=== PATIENT | female | born 1950 | race Caucasian/White ===

== ENCOUNTER 2017-01-24 19:24 | Emergency (ER) | payer MEDICARE ==
[~2017-01-24] VITALS: Ht 149.9 cm; Wt 78.0 kg
[~2017-01-24 19:24] MED LIST: ASPI81 PO; DIOVAN/HCTZ; SIMV5TAB32 PO; TOPR50TA PO; ZOLO20CO PO; vytorin
[2017-01-24 19:34] VITALS: BP 135/100; PULSE 90; RESP 15; TEMP 98.4; O2SAT 100
--- NOTE | 2017-01-24 19:44 | PD ---
HPI Chief Complaint: Musculoskeletal Complaint Time Seen by Provider: 19:44 Travel History International Travel<30 days: No Contact w/Intl Traveler<30days: No Traveled to known affect area: No History of Present Illness HPI 66-year-old female is is the emergency Department with left-sided knee and thigh pain. Patient has a history of arthroscopic surgery in August of last year by Dr. Mackenzie. Patient states over the last 4 days she's had increasing pain to the medial aspect with what appears to be swelling and radiational pain into the left medial thigh. She denies numbness or weakness. She does status has been "cracking" over the past week. Patient has not tried taking anything for it. Patient does state that her sister was here visiting from [place] and they were doing more walking than normal. Patient is allergic to aspirin, although she does take an enteric-coated baby aspirin daily. She also states she is allergic to penicillin. PFS Past Medical History Depression: Yes High Cholesterol: Yes Coronary Artery Disease: Yes Diabetes: No Diminished Hearing: No Hypertension: Yes ?: Not Past Surgical History Appendectomy: Yes Coronary Artery Bypass Graft: Yes Tonsillectomy: Yes Social History Alcohol Use: No Tobacco Use: Yes (5-6 CIGS PER DAY) Substance Use: No Allergies-Medications (Allergen,Severity, Reaction): Coded Allergies: Aspirin (Verified Allergy, Mild, COLITIS, 01/24/17) Penicillin (Verified Allergy, Mild, COLITIS, 01/24/17) Reported Meds & Prescriptions Reported Meds & Active Scripts Active Prednisone 20 Mg Tab 20 Mg PO BID Reported Glipizide 10 Mg Tab 10 Mg PO DAILY Take 30 minutes before a meal Jardiance (Empagliflozin) 25 Mg Tab 25 Mg PO DAILY Hydrochlorothiazide 25 Mg Tab 25 Mg PO DAILY Amlodipine (Amlodipine Besylate) 5 Mg Tab 5 Mg PO DAILY Crestor (Rosuvastatin Calcium) 20 Mg Tab 20 Mg PO DAILY Diovan (Valsartan) 80 Mg Tab 80 Mg PO DAILY Zoloft (Sertraline HCl) 25 Mg Tab 25 Mg PO DAILY Metoprolol Succinate ER 24 HR (Metoprolol Succinate) 50 Mg Tab 50 Mg PO DAILY Aspirin Low Dose (Aspirin) 81 Mg Chew 81 Mg CHEW DAILY Review of Systems Except as stated in HPI: all other systems reviewed are Neg General / Constitutional: No: Fever Eyes: No: Visual changes HENT: No: Headaches Cardiovascular: No: Chest Pain or Discomfort Respiratory: No: Shortness of Breath Gastrointestinal: No: Abdominal Pain Genitourinary: No: Dysuria Musculoskeletal: Positive: Arthralgias, Limited ROM, Pain Skin: No Rash Neurologic: No: Weakness Psychiatric: No: Depression Endocrine: No: Polydipsia Hematologic/Lymphatic: No: Easy Bruising Physical Exam Narrative GENERAL: Patient appears in mild to moderate distress. SKIN: Warm and dry. Normal color. Normal turgor. HEAD: Atraumatic. Normocephalic. EYES: Pupils equal and round. No scleral icterus. No injection or drainage. ENT: No nasal bleeding or discharge. Mucous membranes pink and moist. Pharynx is clear. Airway is patent. NECK: Trachea midline. Supple nontender. CARDIOVASCULAR: Regular rate and rhythm. RESPIRATORY: No accessory muscle use. Clear to auscultation. Breath sounds equal bilaterally. MUSCULOSKELETAL: Extremities without clubbing, cyanosis. No obvious deformities. Patient appears to have mild to moderate effusion to the left knee compared to the right. She has tenderness with palpation along the medial joint line and up into the distal medial thigh. Patient has no calf tenderness. Negative Homans sign. Difficult to assess Francine's test or laxity secondary to patient's pain. NEUROLOGICAL: Awake and alert. No obvious cranial nerve deficits. Motor grossly within normal limits. Five out of 5 muscle strength in the arms and legs. Normal speech. PSYCHIATRIC: Appropriate mood and affect; insight and judgment normal. Data Data Last Documented VS Vital Signs Date Time Temp Pulse Resp B/P Pulse Ox O2 Delivery O2 Flow Rate FiO2 01/24/17 19:34 98.4 90 15 135/100 100 Orders Knee, Complete (4vws) (01/24/17 19:51) Ice/Cold Pack (01/24/17 19:51) Us Leg Venous Doppler (01/24/17 19:51) Prednisone (Deltasone) (01/24/17 21:00) Splint Or Brace Apply/Monitor (01/24/17 21:57) Immobilizer Knee 20 Inch (01/24/17 ) [facility] Medical Decision Making Medical Screen Exam Complete: Yes Emergency Medical Condition: Yes Differential Diagnosis Left knee pain. Left knee effusion. Possible DVT. Narrative Course Patient is medically stable at time of exam. X-ray of the left knee is ordered as well as ultrasound of the left leg. X-ray shows significant arthritis with small effusion per radiologist. Patient is given 60 mg prednisone by mouth as she cannot take NSAIDs or aspirin due to stomach issues. Ultrasound shows no DVT or other significant findings per radiologist. Patient will be placed in a knee immobilizer for comfort while emulating. Patient is given prednisone 20 mg twice a day 5 days. Patient also given Lortab 5/325 one to 2 tabs every 6 hours when necessary for pain #20. Patient use ice recoiling and follow with orthopedic as discussed. Diagnosis Primary Impression: Arthritis of knee, left Additional Impression: Effusion, left knee Referrals: Abraham Mackenzie MD call for appointment Patient Instructions: Arthritis (ED), General Instructions, Knee Immobilizer ( ED) Additional Instructions: Patient is given 60 mg prednisone by mouth as she cannot take NSAIDs or aspirin due to stomach issues. Ultrasound shows no DVT or other significant findings per radiologist. Patient will be placed in a knee immobilizer for comfort while emulating. Patient is given prednisone 20 mg twice a day 5 days. Patient also given Lortab 5/325 one to 2 tabs every 6 hours when necessary for pain #20. Patient use ice recoiling and follow with orthopedic as discussed. Med/Other Pt SpecificInfo: Prescription(s) given Scripts Hydrocodone-Acetaminophen (Lortab)5-325 Mg Tab1-2 Tab PO Q6H PRN (PAIN) #20 TAB Prov:Rafael Nation MD 01/24/17 Prednisone 20 Mg Tab20 Mg PO BID #10 TAB Prov:Rafael Nation MD 01/24/17 Disposition: 01 DISCHARGE HOME Condition: Stable Luther Travis January 24, 2017 19:44
[2017-01-24] MEDS ORDERED: DIOV80TA4 PO (19:58)
[2017-01-24] MEDS ORDERED: ZOLO25TA PO (19:58)
[2017-01-24] MEDS ORDERED: EMPA1TAB3 PO (19:58)
[2017-01-24] MEDS ORDERED: GLIP10TA6 PO (19:58)
[2017-01-24] MEDS ORDERED: HYDR25TA5 PO (19:58)
[2017-01-24] MEDS ORDERED: AMLO5TAB2 PO (19:58)
[2017-01-24] MEDS ORDERED: ASPI81CH37 CHEW (19:58)
[2017-01-24] MEDS ORDERED: ROSU20 PO (19:58)
[2017-01-24] MEDS ORDERED: METO50TA11 PO (19:58)
--- NOTE | 2017-01-24 20:22 | RADHPO ---
EXAM DATE/TIME: 01/24/2017 20:02 [facility] COMPARISON: No previous studies available for comparison. INDICATIONS : Left knee pain for 1 month post meniscus repair 4 months ago MEDICAL HISTORY : None. SURGICAL HISTORY : Left knee meniscus repair ENCOUNTER: Initial ACUITY: 1 month PAIN SCORE: 5/10 LOCATION: Left anterior knee FINDINGS: Normal bone density. Spurring of the tibial spines and mild narrowing of the medial tibiofemoral comp artment with marginal osteophytosis. Small effusion. No fractures. CONCLUSION: 1. Osteoarthritis and small knee joint effusion. Ethan Martinez MD on January 24, 2017 at 20:21 Board Certified Radiologist. This report was verified electronically.
[2017-01-24] MEDS ORDERED: predniSONE 20 MG TAB PO SCH (21:00)
--- NOTE | 2017-01-24 21:43 | RADHPO ---
EXAM DATE/TIME: 01/24/2017 21:02 [facility] COMPARISON: No previous studies available for comparison. INDICATIONS : Left leg pain. MEDICAL HISTORY : Hypercholesterolemia. Hypertension. Coronary artery disease. Depression. SURGICAL HISTORY : Tonsillectomy. Appendectomy. CABG Left knee arthroscopy. ENCOUNTER: Initial ACUITY: 4 - 6 days PAIN SCORE: 6/10 LOCATION: Left leg. TECHNIQUE: Venous ultrasound of the leg was performed from the inguinal ligament to the proximal calf. Real-constance e, color Doppler and spectral tracing, compression and augmentation techniques were used. FINDINGS: There is normal compressibility of the deep venous system from the inguinal region to the proximal ca lf. No echogenic clot is seen in the lumen of the common femoral, femoral, popliteal, and posterior tibial veins. There is a normal response of the venous system to proximal and distal augmentation an d respiration. CONCLUSION: Normal examination. Ethan Martinez MD on January 24, 2017 at 21:41 Board Certified Radiologist. This report was verified electronically.
[2017-01-24] MEDS ORDERED: PRED20 PO ×2 (21:56→22:05)
[2017-01-24] MEDS ORDERED: TRAM50TA PO ×2 (21:56→22:05)
[2017-01-24] MEDS ORDERED: HYDR-3533 PO (22:18)
== END 2017-01-24 22:25 | disposition home or self-care (01) ==
LOC: PHEFT 19:24
DX: M25.462 Effusion, left knee (principal); M17.12 Unilateral primary osteoarthritis, left knee; M79.652 Pain in left thigh; F32.9 Major depressive disorder, single episode, unspecified; I25.10 Atherosclerotic heart disease of native coronary artery without angina pectoris; I10 Essential (primary) hypertension; E78.00 Pure hypercholesterolemia, unspecified; F17.200 Nicotine dependence, unspecified, uncomplicated; Z79.899 Other long term (current) drug therapy
CPT/HCPCS: 73564; 93971; 99284; J7512; L1830